=== PATIENT | male | born 1940 | race Caucasian/White ===

== ENCOUNTER → 2016-10-24 | Outpatient (CLI) | payer OTHER ==
[2016-04-18 14:32] VITALS: BP 156/84; PULSE 75
[~2016-10-24] MED LIST: ASPI-435 PO; CALC500C70 PO; FENO145T26 PO; FLUT0.15 NAE; NIAC1TAB59 PO; REDCAP2 PO; TAMS0.4C38 PO
[2016-10-24 13:21] VITALS: BP 166/63; PULSE 72; TEMP 36.8; O2SAT 99
--- NOTE | 2016-10-24 16:31 | Radiation Oncology Follow-Up ---
Radiation Oncology Follow-Up Date of Visit Oct 24, 2016. (Sonali Carvalho PA-C) Reason For Visit 6 month follow-up (Sonali Carvalho PA-C) Radiation Completion Date 03/20/16 (Sonali Carvalho PA-C) Diagnosis (1) Prostate cancer Status: Resolved Onset Date: 10/24/2014 Location: both lobes of the prostate Histology Subtype: Adenocarcinoma adenocarcinoma Stage: l Permanent Comment: DIAGNOSIS: Prostate, adenocarcinoma, davina 3 + 3, PSA 4.60 , cT1c, group IA Diagnosed 10/24/2014 did active surveillance for one year Status post completion of radiation therapy 03/20/2016 received 8100 cGy Last Edited By: Sonali Carvalho on Mar 29, 2016 10:00 (Sonali Carvalho PA-C) History of Present Illness Mr. Crawford is a 75-year-old gentleman who recently presented with an elevated PSA in October 2013 at 5.61. At that point, the decision was made to follow his PSA and he did have a repeat PSA on 09/27/2014 which was elevated to 8.05. He was then seen by Dr. Zoë Krishna who did have the patient undergo a transrectal ultrasound-guided biopsy on 10/24/2014 which revealed prostate adenocarcinoma Taberg 3+3 in 5/12 cores. There is no evidence of perineural invasion. At that point, the patient elected for active surveillance underneath the supervision of Dr. Zoë Krishna. He did have a repeat PSA on 02/22/2015 which was 4.60 He did have a repeat biopsy on 11/27/2015 which revealed prostate adenocarcinoma that was Taberg 3+3. This time there were 8/ 16 cores positive for prostate cancer. Again, there is no evidence of perineural invasion. Dr. Krishna discuss treatment options including continuing with active surveillance or proceeding with treatment based on the increased volume of Taberg 3+3 prostate cancer. The patient elected to discuss treatment options and is interested in external beam radiation therapy. We are now seeing the patient in consultation. Currently, the patient is doing relatively well overall. His IPSS score today is 2/35. His EPIC QOL score is 4/60. He has no other complaints. He has no history of inflammatory bowel disease or rectal hemorrhoids. He has no history of a TURP. He has no other complaints. Options of treatment were reviewed. Ultimately the decision was to have gold fiducial markers placed and then return for external beam radiation. He did have a planned vacation after which he returned to begin the process of treatment. Radiation was completed 03/20/2016. He received 8100 cGy (Sonali Carvalho PA-C) Interim History He is been doing well over the past 6 months. His urinary status is stable. He given AUA score of 2. He completed and expanded prostate cancer index composite for clinical practice and gave a score of 0 12 and urinary incontinence symptoms. He gave a score of 0 12 and urinary irritation symptoms. He gave a score of 0 of 12 and bowel symptoms. He gave a score of 8 of 12 sexual symptoms. To note he marked this is not a problem. He gave a score of 0 12 and hormonal vitality symptoms. His total was 8 of 60. We discussed the Flomax which he has been on for over the past 2 years. This was started for increased urinary symptoms and he is continued on the medication throughout the radiation time. He had a PSA 04/18/2016 and that was 1.530. (Sonali Carvalho PA-C) Allergies Coded Allergies: No Known Allergies (Unverified , 12/19/15) Home Medications Scheduled Aspirin (Aspirin 81), 81 MG PO DAILY Calcium/Vitamin D (Os-Beto 500 Plus D), 1 TAB PO DAILY Fenofibrate (Tricor ), 1 TAB PO HS Niacin Ext Rel (Niaspan Ext Rel), 500 MG PO DAILY Red Yeast Rice Extract (Red Yeast Rice), 1 TAB PO DAILY Tamsulosin Hcl (Flomax), 1 CAP PO DAILY Review of Systems Gastrointestinal: Symptoms: WNL Oral: Symptoms: No Problems Respiratory: Symptoms: WNL Other Respiratory: Dry/Productive cough at times - sputum is thick clear Urinary: Symptoms: Nocturia Comments: Nocturia x 1 at times sometimes not, See AUA & EPIC Skin: Symptoms: No Problems (Sonali Carvalho PA-C) Physical Exam Vital Signs Date Time Temp Pulse Resp B/P Pulse Ox O2 Delivery O2 Flow Rate FiO2 10/24/16 13:21 36.8 72 18 166/63 99 Pain: Side: Bilateral Patient Pain Scale: 0 - 10 Initial Pain Intensity: 0.0 Fatigue: None General Appearance: no apparent distress Eyes: normal inspection, EOMI ENT: normal ENT inspection, hearing grossly normal Neck: no adenopathy, thyroid normal Respiratory/Chest: lungs clear, no respiratory distress, no accessory muscle use Cardiovascular: regular rate, rhythm, no gallop, no murmur Abdomen: non tender, soft Extremities: no pedal edema Neurologic/Psychiatric: no motor/sensory deficits, alert, normal mood/affect Skin: warm/dry Lymphatic: no adenopathy (Sonali Carvalho PA-C) Laboratory Studies Test 10/24/16 13:56 Prostate Specific Antigen 0.555 ng/ml (0.000-4.000) (Sonali Carvalho PA-C) Assessment & Plan Plan: The patient was seen by Dr. Marcos. A PSA was obtained today. He'll be notified as to results. Continue regular follow-up with Dr. Krishna. He has an appointment scheduled for September. We asked him to return to our office therefore in 6 months. We discussed the tamsulosin. Because his AUA score is very good he could possibly wean off and stop the medication. He is going to decide whether he would like to do this. He may discuss it with Dr. Krishna at his next visit. Recommendation is for continued recheck PSAs every 6 months for the next 5 years. And then annually. (Sonali Carvalho PA-C) I agree with note created by Sonali Carvalho PA-C. I reviewed the patient's chart and information with her. I have examined and evaluated the patient. I reviewed relevant clinical information and answered the patient's and/or family' s questions. (Veeral. Marcos MD) Total Time In Follow-Up I spent 20 minutes speaking to the patient performing examination. I spent 15 minutes reviewing information in completing this note. (Sonali Carvalho PA-C) I spent 15 minutes examining and counseling the patient. (Veeral. Marcos MD) Copy To Malathi Ramsey DO; Zoë Krishna MD
== END | disposition home or self-care (01) ==
LOC: C.ONC 13:16
PROVIDERS: ATTEND Radiology Radiation Oncology
DX: Z08 Encounter for follow-up examination after completed treatment for malignant neoplasm (principal); Z92.3 Personal history of irradiation; Z85.46 Personal history of malignant neoplasm of prostate

== ENCOUNTER → 2016-12-02 | Outpatient (CLI) | payer OTHER ==
[~2016-12-02] MED LIST changes: -FLUT0.15 NAE
--- NOTE | 2016-12-02 12:23 | DIAGNOSTIC IMAGING REPORT ---
MRI OF THE LUMBAR SPINE WITHOUT CONTRAST CLINICAL HISTORY: Right buttock pain. COMPARISON STUDY: No previous studies for comparison. TECHNIQUE: Utilizing a 1.5 Cate magnet and dedicated coil, multiplanar, multiecho imaging of the lumbar spine was performed without IV contrast. FINDINGS: For purposes of numbering on this exam, the L5-S1 disc space is assigned to axial image 27 of 30. There is reversal of the normal lumbar lordosis. Vertebral body heights are maintained. There is no marrow replacement. There is mild rightward curvature of the mid to lower lumbar spine. No intracanalicular mass or fluid collection is identified. Paravertebral soft tissues are unremarkable. L1-2: There is disc space narrowing with disc bulge. This results in moderate narrowing of the central canal. There is mild negative the lateral recesses and the neural foramen. L2-3: There is disc space narrowing with disc bulge, ligamentous hypertrophy and facet arthrosis. There is mild to moderate narrowing of the central canal and lateral recesses. There is mild narrowing of both neural foramen. L3-4: There is disc space narrowing with disc bulge, ligamentous hypertrophy and facet arthrosis. There is moderate narrowing of the central canal, lateral recesses and right neural foramen with severe narrowing of the left neural foramen. L4-5: There is disc space narrowing with disc bulge and a superimposed left paracentral disc protrusion. There is ligamentous hypertrophy and facet arthrosis. There is moderate to severe narrowing of the central canal and left lateral recess with moderate narrowing of both neural foramen. L5-S1: There is disc space narrowing with disc bulge, ligamentous hypertrophy and facet arthrosis. There is minimal narrowing of the central canal. There is severe bilateral neural foraminal stenosis on the right and moderate left neural foraminal stenosis. IMPRESSION: 1. Multilevel degenerative disc disease and facet arthrosis with moderate to severe multilevel central canal and neural foraminal stenosis, as detailed above. 2. No compression fracture. 3. No evidence of metastatic disease within the lumbar spine. Electronically signed by: Zain Bruner M.D. 12/02/2016 12:21 PM Dictated Date/Time: 12/02/2016 11:58 AM
== END | disposition home or self-care (01) ==
LOC: C.MRI 10:24
PROVIDERS: ATTEND Physician Assistant
DX: M54.10 Radiculopathy, site unspecified (principal); M79.661 Pain in right lower leg; M51.36 Other intervertebral disc degeneration, lumbar region; M12.9 Arthropathy, unspecified; M48.06 Spinal stenosis, lumbar region

== ENCOUNTER 2017-07-21 10:43 | Emergency (ER) | payer OTHER ==
[~2017-07-21] VITALS: Ht 160 cm; Wt 82.0 kg
[2017-07-21 10:44] VITALS: Ht 160 cm; Wt 82.0 kg
[2017-07-21] MEDS ORDERED: ONDANSETRON INJ 2 MG/ML 2 ML VIAL IV STA (11:04)
[2017-07-21] MEDS ORDERED: MECLIZINE HCL 25 MG TAB PO STA (11:04)
[2017-07-21 11:31] LABS: BASO % 0.6 %; BASO ABS # 0.03 K/uL (0-0.2); COMPLETE YES; EOS % 3.2 %; IG% 0.2 %; LYMPH % 26.2 %; LYMPH ABS # 1.23 K/uL (1.2-3.4); MEAN CELL VOLUME 88.5 fL (80-100); MEAN CORPUSCULAR HEMOGLOBIN 31.7 pg (25-34); MEAN CORPUSCULAR HGB CONC 35.8 g/dl (32-36); MEAN PLATELET VOLUME 8.9 fL (7.4-10.4); NEUT % 59.8 %; PLATELET COUNT 158 K/uL (130-400); RED BLOOD COUNT 4.86 M/uL (4.7-6.1); WHITE BLOOD COUNT 4.69 K/uL (4.8-10.8)
[2017-07-21 11:48] LABS: BLOOD UREA NITROGEN 25 mg/dl (7-18); BUN/CREATININE RATIO 21.5 (10-20); CALCIUM 9.1 mg/dl (8.5-10.1); CARBON DIOXIDE 26 mmol/L (21-32); CHLORIDE 105 mmol/L (98-107); CREATININE 1.16 mg/dl (0.60-1.40); GLUCOSE 92 mg/dl (70-99); POTASSIUM 4.1 mmol/L (3.5-5.1); SODIUM 140 mmol/L (136-145)
--- NOTE | 2017-07-21 11:56 | DIAGNOSTIC IMAGING REPORT ---
HEAD CT NONCONTRAST CT DOSE: 776.86 mGycm HISTORY: Dizzy. Lightheaded. TECHNIQUE: Multiaxial CT images of the head were performed without the use of intravenous contrast. Automated exposure control was utilized for this study. A dose lowering technique was utilized adhering to the principles of ALARA. Comparison: None. Findings: The paranasal sinuses and mastoid air cells are clear. The calvarium and skull base are intact. The ventricles and sulci are within normal limits. There is no mass, hematoma, midline shift, or acute infarct. Impression: No acute intracranial abnormality. Electronically signed by: Hammad Diamond M.D. 07/21/2017 11:54 AM Dictated Date/Time: 07/21/2017 11:49 AM
[2017-07-21] MEDS ORDERED: DIAZEPAM 5MG TAB PO STA (12:19)
--- NOTE | 2017-07-21 13:25 | EMERGENCY ROOM VISIT NOTE ---
History Report prepared by Rennyibyesenia: Colin White Under the Supervision of: Dr. Edmar Reid M.D. First contact with patient: 10:59 Chief Complaint: DIZZY Stated Complaint: DIZZY, LIGHT HEADED Nursing Triage Summary: pt woke up with dizziness and then started to vomitt after getting into triage. difficult to get more information due to vomitting History of Present Illness The patient is a 76 year old male who presents to the Emergency Room with complaints of intermittent dizziness beginning a few hours ago. He states that he woke up in the middle of the night feeling dizzy. He states that his symptoms returned in the morning upon laying back. The patient also complains of vomiting. He denies recent falls, injury, or trauma. He denies any changes to his medications. The patient denies visual changes, ear pain, chest pain, SOB , fevers, or headache. Source of History: patient Onset: A few hours ago Quality: other (dizziness) Timing: intermittent Modifying Factors (Worsening): other (laying down) Associated Symptoms: + vomiting, No fevers, No headache, No chest pain, No SOB Note: The patient denies visual changes or ear pain. Review of Systems See HPI for pertinent positives & negatives. A total of 10 systems reviewed and were otherwise negative. Past Medical & Surgical Medical Problems: (1) Hyperlipidemia (2) Prostate cancer Family History No pertinent family history stated. Social History Smoking Status: Former Smoker Marital Status: Occupation Status: retired Current/Historical Medications Scheduled Aspirin (Aspirin 81), 81 MG PO DAILY Niacin Ext Rel (Niaspan Ext Rel), 500 MG PO DAILY Red Yeast Rice Extract (Red Yeast Rice), 1 TAB PO DAILY Tamsulosin Hcl (Flomax), 1 CAP PO DAILY Allergies Coded Allergies: No Known Allergies (Unverified , 07/21/17) Physical Exam Vital Signs Date Time Temp Pulse Resp B/P (MAP) Pulse Ox O2 Delivery O2 Flow Rate FiO2 07/21/17 13:29 68 18 146/84 97 Room Air 07/21/17 13:18 68 07/21/17 12:33 57 22 158/87 99 Room Air 07/21/17 11:14 63 07/21/17 10:44 72 16 213/78 92 Room Air Physical Exam GENERAL: Patient is uncomfortable appearing and in mild distress. HEENT: No acute trauma, normocephalic atraumatic, mucous membranes moist, no nasal congestion, no scleral icterus. Left lateral horizontal nystagmus bilaterally. NECK: No stridor, no adenopathy, no meningismus, trachea is midline. LUNGS: No dyspnea. Clear to auscultation and equal bilaterally. No wheeze, no rhonchi. HEART: Regular rate and rhythm. No murmurs, rubs, gallops appreciated. ABDOMEN: Soft, nontender, bowel sounds positive, no masses appreciated, no peritonitis. BACK: No midline tenderness, no CVA tenderness EXTREMITIES: Normal motion all extremities, no cyanosis, no edema. NEUROLOGIC: Alert and oriented, no acute motor or sensory deficits, no focal weakness, cranial nerves grossly intact. SKIN: No rash, no jaundice, no diaphoresis. Medical Decision & Procedures ER Provider Diagnostic Interpretation: Radiology results and stated below per my review and radiologist interpretation: HEAD CT NONCONTRAST TECHNIQUE: Multiaxial CT images of the head were performed without the use of intravenous contrast. Automated exposure control was utilized for this study. A dose lowering technique was utilized adhering to the principles of ALARA. Comparison: None. Findings: The paranasal sinuses and mastoid air cells are clear. The calvarium and skull base are intact. The ventricles and sulci are within normal limits. There is no mass, hematoma, midline shift, or acute infarct. Impression: No acute intracranial abnormality. Electronically signed by: Hammad Diamond M.D. 07/21/2017 11:54 AM Laboratory Results 07/21/17 11:20 Red Blood Count 4.86, Mean Corpuscular Volume 88.5, Mean Corpuscular Hemoglobin 31.7, Mean Corpuscular Hemoglobin Concent 35.8, Mean Platelet Volume 8.9, Neutrophils (%) (Auto) 59.8, Lymphocytes (%) (Auto) 26.2, Monocytes (%) (Auto) 10.0, Eosinophils (%) (Auto) 3.2, Basophils (%) (Auto) 0.6, Neutrophils # (Auto ) 2.80, Lymphocytes # (Auto) 1.23, Monocytes # (Auto) 0.47, Eosinophils # (Auto ) 0.15, Basophils # (Auto) 0.03 07/21/17 11:20 Test 07/21/17 11:20 White Blood Count 4.69 K/uL (4.8-10.8) Red Blood Count 4.86 M/uL (4.7-6.1) Hemoglobin 15.4 g/dL (14.0-18.0) Hematocrit 43.0 % (42-52) Mean Corpuscular Volume 88.5 fL (80-100) Mean Corpuscular Hemoglobin 31.7 pg (25-34) Mean Corpuscular Hemoglobin Concent 35.8 g/dl (32-36) Platelet Count 158 K/uL (130-400) Mean Platelet Volume 8.9 fL (7.4-10.4) Neutrophils (%) (Auto) 59.8 % Lymphocytes (%) (Auto) 26.2 % Monocytes (%) (Auto) 10.0 % Eosinophils (%) (Auto) 3.2 % Basophils (%) (Auto) 0.6 % Neutrophils # (Auto) 2.80 K/uL (1.4-6.5) Lymphocytes # (Auto) 1.23 K/uL (1.2-3.4) Monocytes # (Auto) 0.47 K/uL (0.11-0.59) Eosinophils # (Auto) 0.15 K/uL (0-0.5) Basophils # (Auto) 0.03 K/uL (0-0.2) RDW Standard Deviation 41.6 fL (36.4-46.3) RDW Coefficient of Variation 12.9 % (11.5-14.5) Immature Granulocyte % (Auto) 0.2 % Immature Granulocyte # (Auto) 0.01 K/uL (0.00-0.02) Anion Gap 9.0 mmol/L (3-11) Est Creatinine Clear Calc Drug Dose 52.9 ml/min Estimated GFR () 71.5 Estimated GFR (Non- 61.7 BUN/Creatinine Ratio 21.5 (10-20) Calcium Level 9.1 mg/dl (8.5-10.1) Troponin I < 0.015 ng/ml (0-0.045) Laboratory results as reviewed by me. Medications Administered Medications (Trade) Dose Ordered Sig/Camila Route Start Time Stop Time Status Last Admin Dose Admin Ondansetron HCl (Zofran Inj) 4 mg NOW STAT IV 07/21/17 11:04 07/21/17 11:07 DC 07/21/17 11:13 4 MG Meclizine HCl (Antivert Tab) 25 mg NOW STAT PO 07/21/17 11:04 07/21/17 11:07 DC 07/21/17 11:13 25 MG Diazepam (Valium Tab) 5 mg NOW STAT PO 07/21/17 12:19 07/21/17 12:20 DC 07/21/17 12:30 5 MG ECG Indication: other (dizziness) Rate (beats per minute): 62 Rhythm: normal sinus Findings: no acute ischemic change, no ectopy ED Course 1100: The patient was evaluated in room C7. A complete history and physical exam was performed. 1104: Ordered Antivert Tab 25 mg PO, Zofran Inj 4 mg IV. 1216: I reassessed the patient. He still feels a little dizzy. 1219: Ordered Valium Tab 5 mg PO. 1310: Reevaluated the patient. He has had complete resolution of his symptoms. Discussed results and discharge instructions: he verbalized understanding and agreement. The patient is ready for discharge. Medical Decision Differential diagnoses include Benign positional vertigo, Dehydration, Hypovolemia, Anemia, Tumor, Infection, Hypoglycemia, Electrolyte abnormalities, Cardiac sources, Intracerebral event, Toxicologic, Neurologic, as well as others were entertained. 76 yr old male arrives with vertiginous symptoms getting out of bed this morning. Left lateral nystagmus. No neuro deficits nor headache. CT head unremarkable. Labs look good. NSR on EKG. Feeling better with resolution after meclizine then valium. Breathing comfortably and wishing to go home. Stable at discharge with . Reviewed instructions regarding symptoms to monitor and risks of valium Medication Reconcilliation Current Medication List: was personally reviewed by me Blood Pressure Screening Patient's blood pressure: Elevated blood pressure Blood pressure disposition: Referred to PCP Impression Primary Impression: Vertigo Scribe Attestation The scribe's documentation has been prepared under my direction and personally reviewed by me in its entirety. I confirm that the note above accurately reflects all work, treatment, procedures, and medical decision making performed by me. Departure Information Dispostion Home / Self-Care Referrals No Doctor, Assigned (PCP) Patient Instructions ED Vertigo Unspecified, My [facility] Additional Instructions You have received a benzodiazepine medication prescription. These medications may cause drowsiness and should not be used with other sedative medications. Do not drive, drink alcohol, perform dangerous activities, nor make important decisions after taking these medications. exterminator helper termite use or inappropriate use may lead to addiction.
[2017-07-21 13:29] VITALS: BP 146/84; PULSE 68; O2SAT 97
== END 2017-07-21 13:34 | disposition home or self-care (01) ==
LOC: C.EDB 10:44 → C.EDC 13:34
DX: R42 Dizziness and giddiness (principal); E78.5 Hyperlipidemia, unspecified; Z79.82 Long term (current) use of aspirin; Z85.46 Personal history of malignant neoplasm of prostate; Z87.891 Personal history of nicotine dependence